=== PATIENT | male | born 1975 ===

== ENCOUNTER 2017-05-19 06:00 | Emergency (ER) | payer OTHER ==
--- NOTE | 2017-05-19 07:34 | ED PDOC ---
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 Patient is Burmese speaking, history obtained through scribe. Patient reports his pain worsened over the past week. He notes mild dysuria and hematochezia. Patient denies any fever, chills, nausea, vomiting, diarrhea, abdominal pain, chest pain, shortness of breath or any other complaints. Time/Duration: Other (years) Symptom Course: Worsening (over the past week) Quality: Other Context: Home Past Medical History - Provider Review Nursing Documentation Reviewed: Yes - Psychiatric Hx Substance Use: No Family/Social History - Physician Review Nursing Documentation Reviewed: Yes Family/Social History: No Known Family HX Smoking Status: n Hx Alcohol Use: No Hx Substance Use: No Allergies/Home Meds Allergies/Adverse Reactions: Allergies No Known Allergies Allergy (Verified 05/19/17 07:08) Review of Systems - Review of Systems Constitutional: Fatigue. absent: Fevers, Night Sweats ENT: absent: Hearing Changes Respiratory: absent: SOB Cardiovascular: absent: Chest Pain Gastrointestinal: Other (rectal pain). absent: Abdominal Pain, Diarrhea, Nausea , Vomiting, Hematochezia, Hematemesis, Food Intolerance Genitourinary Male: Dysuria. absent: Frequency, Hematuria Musculoskeletal: Other (Rectal pain). absent: Back Pain, Neck Pain Physical Exam - Physical Exam Narrative Physical Exam (Text): Head: Atraumatic. Normocephalic. Eyes: PERRL. EOMI. Conjunctivae are not pale. ENT: Mucous membranes are moist and intact. Oropharynx is clear and symmetric. Neck: Supple. Full ROM. No JVD. No lymphadenopathy. Cardiovascular: Regular rate. Regular rhythm. No murmurs, rubs, or gallops. Distal pulses are 2+ and symmetric. Pulmonary/Chest: No evidence of respiratory distress. Clear to auscultation bilaterally. No wheezing, rales or rhonchi. Abdominal: Soft and non-distended. There is no tenderness. No rebound, guarding, or rigidity. No organomegaly. Good bowel sounds. Genitourinary: no penile discharge, no testicular erythema or edema Rectal: tenderness around anus with no edema or thrombosed hemorrhoid, pain with rectal exam but no melena or bright red blood Back: No CVA tenderness. Extremities: No edema. No cyanosis. No clubbing. Full range of motion in all extremities. No calf tenderness. Skin: Skin is warm and dry. No petechiae. No purpura. Neurological: Alert, awake, and oriented. Motor and sensory exam intact. Psychiatric: Good eye contact. Normal interaction, affect, and behavior. Vital Signs Reviewed: Yes Vital Signs Temp Pulse Resp BP Pulse Ox 05/19/17 11:20 98 F 62 20 130/70 100 05/19/17 09:57 98.5 F 60 19 145/74 100 05/19/17 08:25 98.5 F 60 18 120/67 100 05/19/17 06:21 98.8 F 78 18 136/78 99 Temperature: Afebrile Blood Pressure: Normal Pulse: Regular Respiratory Rate: Normal Appearance: Positive for: Non-Toxic, Comfortable, Uncomfortable Pain Distress: Mild Mental Status: Positive for: Alert and Oriented X 3 Medical Decision Making ED Course and Treatment: 05/19/17 07:34 Impression: A 41 year old male with rectal pain x2 years, worsening over the past week. Patient notes dysuria and pain with bowel movements. He states he has had this pain on and off for several years, but more pain over past several days. Worse with sitting. On exam, there is palpable pain around the anus but no large hemorrhoids or purulence noted. Denies rectal foreign body. Denies anal sex. Denies history of std. 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 Plan: -- Labs -- Urine culture and Urinalysis -- Reassess and disposition Progress Notes: Labs reviewed, showed no abnormalities. Will order CT for further evaluation to evaluate for deep abscess given report of pain. Report Date : 05/19/2017 11:28:17 PROCEDURE: CT Abdomen and Pelvis with contrast Dictator : Rikki Solorio MD IMPRESSION: No evidence of colitis, enteritis or appendicitis. Additional benign and/or incidental findings described above. Patient's labs and ua reviewed with patient. Will d/c with anusol for anal pain, keflex for possible mild skin inflammation. 05/21/17 21:48 - Lab Interpretations Microbiology Results: Microbiology Results 05/19/17 07:38 Urine Urine Culture - Final No Growth (<1,000 CFU/ML) Lab Results: 05/19/17 08:00 05/19/17 08:00 Lab Results 05/19/17 08:00: Sodium 142, Potassium 4.2, Chloride 105, Carbon Dioxide 26, Anion Gap 15, BUN 18, Creatinine 0.7 L, Est GFR ( Amer) > 60, Est GFR ( Non-Af Amer) > 60, Random Glucose 99, Calcium 9.7, Total Bilirubin 0.4, AST 49, ALT 56, Alkaline Phosphatase 75, Total Protein 7.7, Albumin 4.6, Globulin 3.1, Albumin/Globulin Ratio 1.5 05/19/17 08:00: WBC 9.1, RBC 4.73, Hgb 14.4, Hct 41.9 L, MCV 88.6, MCH 30.4, MCHC 34.4, RDW 13.4, Plt Count 262, MPV 9.1, Gran % 56.6, Lymph % (Auto) 32.4, [place] % (Auto) 7.9 H, Eos % (Auto) 2.8, Baso % (Auto) 0.3, Gran # 5.16, Lymph # 3.0, [place] # 0.7 H, Eos # 0.3, Baso # 0.03 05/19/17 07:38: Urine Color Light yellow, Urine Appearance Clear, Urine pH 7.0, Ur Specific [place] 1.010, Urine Protein Negative, Urine Glucose (UA) Negative, Urine Ketones Negative, Urine Blood Small H, Urine Nitrate Negative, Urine Bilirubin Negative, Urine Urobilinogen 0.2, Ur Leukocyte Esterase Negative, Urine RBC 2 - 5, Urine WBC 0 - 2, Ur Epithelial Cells 0 - 2, Urine Bacteria Trace I have reviewed the lab results: Yes - RAD Interpretation Radiology Orders: 05/19/17 09:07 ABD & PELVIS IV CONTRAST ONLY [CT] Stat - Scribe Statement The provider has reviewed the documentation as recorded by the Scribe Yvette Gay Provider Scribe Attestation: All medical record entries made by the Scribe were at my direction and personally dictated by me. I have reviewed the chart and agree that the record accurately reflects my personal performance of the history, physical exam, medical decision making, and the department course for this patient. I have also personally directed, reviewed, and agree with the discharge instructions and disposition. Disposition/Present on Arrival - Present on Arrival Any Indicators Present on Arrival: No History of DVT/PE: No History of Uncontrolled Diabetes: No Urinary Catheter: No History of Decub. Ulcer: No History Surgical Site Infection Following: None - Disposition Have Diagnosis and Disposition been Completed?: Yes Diagnosis: Rectal pain, Hemorrhoid Disposition: HOME/ ROUTINE Disposition Time: 11:00 Patient Plan: Discharge Condition: GOOD Discharge Instructions (ExitCare): Hemorrhoids (ED), Rectal Pain (ED) Additional Instructions: For any abdominal pain, any bleeding, any fevers, any chest pain or shortness or shortness of breath, any difficulty urinating, get rechecked. Follow-up with your physician in 1-2 days. Prescriptions: Hydrocortisone 2.5% (Rectal) [Anusol-HC] 30 applic [place] BID #1 tube Cephalexin [Keflex] 250 mg PO TID #21 capsule Referrals: [facility] at [facility] [place] [Outside] - Follow up with primary Forms: [email or web address] (Stateless)
[2017-05-19 08:10] LABS: BASO # 0.03 K/mm3 (0.0-2.0); BASO % 0.3 % (0.0-3.0); EOS # 0.3 (0.0-0.7); EOS % 2.8 % (1.5-5.0); GRAN # 5.16 (1.4-6.5); GRAN % 56.6 % (50.0-68.0); HEMATOCRIT 41.9 % (42.0-52.0); LYMPH % 32.4 % (22.0-35.0); MEAN CELL VOLUME 88.6 fl (80.0-105.0); MEAN CORPUSCULAR HEMOGLOBIN 30.4 pg (25.0-35.0); MEAN CORPUSCULAR HGB CONC 34.4 g/dl (31.0-37.0); MEAN PLATELET VOLUME 9.1 fl (7.0-11.0); MONO # 0.7 (0.1-0.6); MONO % 7.9 % (1.0-6.0); RED CELL DISTRIBUTION WIDTH 13.4 % (11.5-14.5); WHITE BLOOD COUNT 9.1 10^3/ul (4.5-11.0)
[2017-05-19 08:21] LABS: ALB/GLOB RATIO 1.5 (1.1-1.8); ALKALINE PHOSPHATASE 75 U/L (38-126); ALT/SGPT 56 U/L (7-56); AST/SGOT 49 U/L (17-59); BILIRUBIN,TOTAL 0.4 mg/dL (0.2-1.3); BLOOD UREA NITROGEN 18 mg/dL (7-21); CALCIUM 9.7 mg/dL (8.4-10.5); CARBON DIOXIDE 26 mmol/L (21-33); CHLORIDE 105 mmol/L (98-107); GFR AFRICAN-AMERICAN > 60; GLUCOSE,RANDOM 99 mg/dL (70-110); POTASSIUM 4.2 mmol/L (3.6-5.0); SODIUM 142 mmol/L (132-148); TOTAL PROTEIN 7.7 g/dL (5.8-8.3)
[2017-05-19 08:28] VITALS: O2SAT 100
[2017-05-19 08:48] LABS: URINE BILIRUBIN NEGATIVE (NEGATIVE); URINE BLOOD SMALL (NEGATIVE); URINE GLUCOSE (UA) NEGATIVE (NEGATIVE); URINE KETONE NEGATIVE (NEGATIVE); URINE LEUKOCYTE ESTERASE NEGATIVE Leu/uL (NEGATIVE); URINE PROTEIN NEGATIVE mg/dL (<30 mg/dL); URINE UROBILINOGEN 0.2 E.U./dL (<1 E.U./dL)
[2017-05-19 08:51] LABS: URINE APPEARANCE CLEAR (CLEAR); URINE COLOR LIGHT YELLOW (YELLOW)
[2017-05-19 08:56] LABS: URINE BACTERIA TRACE (NEG); URINE EPITHELIAL CELLS 0 - 2 /hpf (0-5); URINE WBC 0 - 2 /hpf (0-6)
[2017-05-19] MEDS ORDERED: Iohexol 350 MG/100 ML VIAL ONE (09:55)
--- NOTE | 2017-05-19 11:30 | CT ---
PROCEDURE: CT Abdomen and Pelvis with contrast HISTORY: lower abdominal/rectal pain, eval proctitis/colitis COMPARISON: None. TECHNIQUE: Contrast dose: 100 cc Omnipaque 300 Radiation dose: Total exam DLP = 461.32 mGy-cm. This CT exam was performed using one or more of the following dose reduction techniques: Automated exposure control, adjustment of the mA and/or kV according to patient size, and/or use of iterative reconstruction technique. FINDINGS: LOWER THORAX: Unremarkable. LIVER: Focal fatty sparing adjacent to the falciform ligament GALLBLADDER AND BILE DUCTS: Unremarkable. PANCREAS: Unremarkable. No gross lesion or ductal dilatation. SPLEEN: Unremarkable. ADRENALS: Unremarkable. No mass. KIDNEYS AND URETERS: Unremarkable. No hydronephrosis. No solid mass. VASCULATURE: Unremarkable. No aortic aneurysm. BOWEL: Unremarkable. No obstruction. No gross mural thickening. APPENDIX: Normal appendix. PERITONEUM: Unremarkable. No free fluid. No free air. LYMPH NODES: Unremarkable. No enlarged lymph nodes. BLADDER: Unremarkable. REPRODUCTIVE: Unremarkable. Incidental finding(s): Small bilateral hydroceles BONES: No acute fracture. OTHER FINDINGS: None. IMPRESSION: No evidence of colitis, enteritis or appendicitis. Additional benign and/or incidental findings described above.
[2017-05-19 12:49] VITALS: BP 130/70; PULSE 62; RESP 20; TEMP 98
== END 2017-05-19 12:45 | disposition home or self-care (01) ==
LOC: ED 06:00
DX: K64.9 Unspecified hemorrhoids (principal); K62.89 Other specified diseases of anus and rectum
CPT/HCPCS: 74177; 80053; 81001; 85025; 87086; 99284; Q9967